=== PATIENT | female | born 1990 | race Caucasian/White ===

== ENCOUNTER 2018-06-18 05:10 | Inpatient (IN) | payer MEDICAID ==
[2018-06-18] MEDS: LACTATED RINGER'S 500 ML IV (06:25)
[2018-06-18] MEDS ORDERED: DEXAMETHASONE 4 MG/ML 1 ML INJ ×2 (07:00→15:47)
[2018-06-18 07:30] LABS: ADD MAN DIFF? NO
[2018-06-18 07:35] LABS: ABNORMAL IP MESSAGE 1; BASOPHILS % 0.4 % (0.0-2.0); EOSINOPHILS % 0.4 % (0.0-7.0); HEMATOCRIT 37.5 % (37.0-47.0); HEMOGLOBIN 11.7 g/dl (12.0-16.0); LYMPHOCYTES % 26.5 % (15.0-51.0); MEAN CORPUSCULAR HEMOGLOBIN 25.2 pg (29.0-33.0); MEAN CORPUSCULAR HGB CONC 31.2 g/dl (32.0-37.0); MEAN CORPUSCULAR VOLUME 80.8 fl (82.0-101.0); MEAN PLATELET VOLUME 10.2 fl (7.4-10.4); MONOCYTE # 0.5 10^3/ul (0.3-0.9); MONOCYTES % 6.7 % (0.0-11.0); NEUTROPHIL # 4.9 10^3/ul (1.6-7.5); NEUTROPHILS % 65.6 % (39.0-77.0); PLATELET COUNT 263 10^3/UL (140-415); RED BLOOD COUNT 4.64 10^6/ul (4.20-5.40)
[2018-06-18 07:35] LABS: WHITE BLOOD COUNT 7.4 10^3/ul (4.8-10.8)
[2018-06-18 07:36] LABS: POSITIVE DIFF @See below
[2018-06-18 07:53] LABS: PROTIME 12.3 Sec (11.9-14.9)
[2018-06-18 07:54] LABS: PARTIAL THROMBOPLASTIN TIME 26.3 Sec (23.0-35.0)
[2018-06-18] MEDS: LACTATED RINGER'S 1,000 ML IV ×2 (12:02→21:11)
[2018-06-18] MEDS: TERBUTALINE 1 MG/ML INJ SC (12:02)
[2018-06-18] MEDS ORDERED: CARBOPROST 250 MCG INJ IM ×2 (13:00→22:00)
[2018-06-18] MEDS ORDERED: CEFAZOLIN 2 GM/50 ML (PMX) 50 ML IVPB (13:00)
[2018-06-18] MEDS ORDERED: METHYLERGONOVINE 0.2 MG INJ IM ×2 (13:00→22:00)
[2018-06-18] MEDS ORDERED: OXYTOCIN 30 UNITS/LR 500 ML IV ×3 (13:00→22:00)
[2018-06-18] MEDS ORDERED: MISOPROSTOL 200 MCG TAB PR ×2 (13:00→22:00)
[2018-06-18 13:29] LABS: HEPATITIS B SURFACE ANTIGEN NEGATIVE (NEGATIVE)
[2018-06-18 15:25] LABS: RAPID PLASMA REAGIN NONREACTIVE (NR)
[2018-06-18] MEDS ORDERED: morphine SULFATE/PF (10 MG/10 ML) INJ (15:47)
[2018-06-18] MEDS ORDERED: ONDANSETRON 4 MG INJ ×2 (15:47→16:14)
[2018-06-18] MEDS ORDERED: ONDANSETRON 4 MG INJ IV (16:30)
[2018-06-18] MEDS ORDERED: DIPHENHYDRAMINE 50 MG INJ IV (16:30)
[2018-06-18] MEDS ORDERED: NALOXONE (0.4 MG/ML) INJ IV (16:30)
[2018-06-18] MEDS ORDERED: ZOLPIDEM 5 MG TAB PO (16:30)
[2018-06-18] MEDS ORDERED: HYDROmorphONE 0.5 MG/0.5 ML SYG IV (16:30)
[2018-06-18] MEDS: OXYTOCIN 30 UNITS/LR 500 ML IV (17:22)
[2018-06-18] MEDS: KETOROLAC 30 MG INJ IV (18:08)
[2018-06-18] MEDS: HYDROmorphONE 0.5 MG/0.5 ML SYG IV (19:37)
[2018-06-18] MEDS ORDERED: NACL 0.9% 3 ML SYG IV (22:00)
[2018-06-19] MEDS: OXYTOCIN 30 UNITS/LR 500 ML IV (00:21)
[2018-06-19] MEDS: KETOROLAC 30 MG INJ IV ×2 (05:18→14:32)
[2018-06-19] MEDS: LANOLIN HPA 1 PKT TOP (05:20)
[2018-06-19 08:31] LABS: ADD MAN DIFF? NO
[2018-06-19 08:36] LABS: ABNORMAL IP MESSAGE 1; BASOPHILS % 0.2 % (0.0-2.0); HEMATOCRIT 28.5 % (37.0-47.0); LYMPHOCYTES # 1.5 10^3/ul (0.8-2.9); LYMPHOCYTES % 11.5 % (15.0-51.0); MEAN CORPUSCULAR HEMOGLOBIN 25.6 pg (29.0-33.0); MEAN CORPUSCULAR HGB CONC 31.6 g/dl (32.0-37.0); MEAN PLATELET VOLUME 10.3 fl (7.4-10.4); MONOCYTE # 0.8 10^3/ul (0.3-0.9); MONOCYTES % 6.6 % (0.0-11.0); NEUTROPHIL # 10.3 10^3/ul (1.6-7.5); NEUTROPHILS % 81.1 % (39.0-77.0); PLATELET COUNT 229 10^3/UL (140-415); RED BLOOD COUNT 3.52 10^6/ul (4.20-5.40); RED CELL DISTRIBUTION WIDTH 31.4 % (11.5-14.5)
[2018-06-19 08:36] LABS: WHITE BLOOD COUNT 12.7 10^3/ul (4.8-10.8)
[2018-06-19 08:43] LABS: POSITIVE DIFF @See below
[2018-06-19] MEDS: LACTATED RINGER'S 1,000 ML IV (12:09)
[2018-06-19 18:02] LABS: RHOGAM PROFILE 1 1
[2018-06-19] MEDS: IBUPROFEN 800 MG TAB PO (21:49)
[2018-06-20] MEDS: HYDROCODONE/APAP (5/325) TAB PO ×3 (04:54→23:29)
[2018-06-20] MEDS: IBUPROFEN 800 MG TAB PO ×3 (05:31→21:45)
[2018-06-20] MEDS: LANOLIN HPA 1 PKT TOP ×2 (05:39→16:45)
[2018-06-21] MEDS: NA PHOSPHATE/BIPHOS 133 ML ENEMA PR (03:34)
[2018-06-21] MEDS: IBUPROFEN 800 MG TAB PO ×2 (05:20→15:42)
[2018-06-21] MEDS: MEASLES,MUMPS,RUBELLA VACCINE INJ SC* (09:00)
[2018-06-21] MEDS: DIPHTH/TET/ACEL PERTUSS (ADULT) 0.5 ML VIAL IM* (11:32)
[2018-06-21] MEDS: HYDROCODONE/APAP (5/325) TAB PO (12:29)
== END 2018-06-21 17:20 | disposition home or self-care (01) | DRG 785 ==
LOC: OBT 05:10 → L-D 05:10 → OBT 12:00 → L-D 12:00 → PP1 21:20
PROVIDERS: Obstetrics & Gynecology
PROC: 10D00Z1 Extraction of Products of Conception, Low, Open Approach (ICD-10-PCS; principal; 2018-06-18 15:30)
PROC: 0UL70ZZ Occlusion of Bilateral Fallopian Tubes, Open Approach (ICD-10-PCS; 2018-06-18 15:30)
PROC: 3E033VJ Introduction of Other Hormone into Peripheral Vein, Percutaneous Approach (ICD-10-PCS; 2018-06-18 15:30)
DX: O34.211 Maternal care for low transverse scar from previous cesarean delivery (principal); Z30.2 Encounter for sterilization; Z3A.38 38 weeks gestation of pregnancy; Z37.0 Single live birth
CPT/HCPCS: 36415; 85025; 85610; 85730; 86592; 86850; 86870; 86885; 86900; 86901; 87340; 88302; 90715; 96360; 96361